=== PATIENT | female | born 1950 | race Caucasian/White ===

== ENCOUNTER → 2016-12-30 | Outpatient (CLI) | payer MEDICARE, OTHER | LOC: FCPNEURO 23:27 | PROVIDERS: ATTEND Psychiatry & Neurology Sleep Medicine | DX: G47.33 Obstructive sleep apnea (adult) (pediatric) (principal) ==

== ENCOUNTER → 2017-12-22 | Outpatient (CLI) | payer OTHER, MEDICARE | LOC: FIMAGING 10:00 | PROVIDERS: ATTEND Orthopaedic Surgery | DX: M75.32 Calcific tendinitis of left shoulder (principal); M75.52 Bursitis of left shoulder; M75.112 Incomplete rotator cuff tear or rupture of left shoulder, not specified as traumatic; M24.112 Other articular cartilage disorders, left shoulder ==

== ENCOUNTER 2018-04-01 13:18 | Day surgery (SDC) | payer OTHER, MEDICARE ==
--- NOTE | 2018-03-31 16:40 | PDGENHP ---
History & Physical Chief Complaint: Left shoulder impingement syndrome History of Present Illness: Jacklyn is a pleasant 67 year old female with left shoulder: 1. Partial thickness RC tearing in the setting of subacromial impingement anatomy. 2. Partial thickness anterior and posterior labral tears. 3. Moderate AC joint osteoarthritis. 4. Mild GH joint osteoarthritis. She is here to discuss surgical procedure. Pertinent Past, Social, Family History: PMH: Cancer, diabetes, HTN, osteopenia, sleep apnea, thyroid problems
[2018-04-01] MEDS ORDERED: ceFAZolin 2 GM/DEXTROSE 100 ML IV ONE (13:37)
[2018-04-01] MEDS ORDERED: LR 1,000 ML IV ONE (13:37)
[2018-04-01] MEDS ORDERED: EPINEPHrine 1 MG/ML INJ ONE (14:27)
[2018-04-01] MEDS ORDERED: BUPIVACAINE 0.5% 30 ML SDV ONE (14:27)
[2018-04-01] MEDS ORDERED: BUPIVACAINE/EPI 0.5% 30 ML SDV ONE (14:34)
--- NOTE | 2018-04-01 15:05 | PDANEPAE ---
ANE History of Present Illness 67 y/o female here for left shoulder surgery. 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 PNA 2017 - Neurologic History Hx Cerebrovascular Accident: No Hx Seizures: No Hx Dementia: No - Endocrine History Hx Diabetes: Yes Endocrine History Comment: TYPE 1. HYPOTHYROIDISM - Renal History Hx Renal Disorders: No - Liver History Hx Hepatic Disorders: No - Neurological & Psychiatric Hx Hx Neurological and Psychiatric Disorders: Yes Neurological / Psychiatric History Comment: "NERVOUS A LOT OF TIMES" - Cancer History Hx Cancer: Yes Cancer History Comment: RIGHT BREAST- RADIATION AND LUMPECTOMY - Congenital Disorder History Hx Congenital Disorders: No - GI History Hx Gastrointestinal Disorders: Yes Gastrointestinal History Comment: HX OF REFLUX- NO MEDICATIONS OF SX'S CURRENTLY - Other Health History Other Health History: WEARS GLASSES FOR DRIVING ONLY - Chronic Pain History Chronic Pain: Yes (LEFT SHOULDER) - Surgical History Prior Surgeries: KNEE SCOPES X2. LASIK EYE SURGERY. TUBAL LIGATION. RIGHT BUNIONECTOMY. RIGHT LUMPECTOMY ANE Review of Systems Review of Systems: - Exercise capacity METS (RN): 4 METS ANE Patient History - Allergies Allergies/Adverse Reactions: No Known Allergies Allergy (Verified 03/27/18 12:47) - Home Medications Home Medications: Amlodipine Besylate 03/27/18 [Last Taken 1 Day Ago ~03/31/18] Aspirin 81mg (*) 03/27/18 [Last Taken 03/27/18] Atorvastatin Calcium 03/27/18 [Last Taken 1 Day Ago ~03/31/18] HCTZ (*) 03/27/18 [Last Taken 1 Day Ago ~03/31/18] Humalog 03/27/18 [Last Taken 04/01/18] Insulin Pump, Patient Own 03/27/18 [Last Taken 04/01/18] Levothyroxine 03/27/18 [Last Taken 1 Day Ago ~03/31/18] Lisinopril 03/27/18 [Last Taken 1 Day Ago ~03/31/18] Metformin HCl 03/27/18 [Last Taken 03/30/18] Tanzeum 03/27/18 [Last Taken 03/22/18] - NPO status NPO Since - Liquids (Date): 04/01/18 NPO Since - Liquids (Time): 12:00 NPO Since - Solids (Date): 04/01/18 NPO Since - Solids (Time): 05:45 - Smoking Hx Smoking Status: Never smoked - Family Anes Hx Family Hx Anesthesia Complications: NONE ANE Labs/Vital Signs - Vital Signs Blood Pressure: 154/84 Heart Rate: 66 Respiratory Rate: 16 O2 Sat (%): 93 Height: 154.94 cm Weight: 66.678 kg ANE Physical Exam - Airway Mallampati Score: Class 3 Mouth exam: normal dental/mouth exam - Pulmonary Pulmonary: clear to auscultation (Chipped front left tooth) - Cardiovascular Cardiovascular: regular rate and rhythym - ASA Status ASA Status: III
[2018-04-01] MEDS ORDERED: PROPOFOL 200 MG/20 ML VIAL ONE (15:26)
[2018-04-01] MEDS ORDERED: MIDAZOLAM 2 MG/2 ML VIAL ONE (15:44)
--- NOTE | 2018-04-01 15:50 | PDHPUP ---
History & Physical Update H&P update statement: This history and physical update is based on an assessment of the patient which was completed after admission or registration (within 24 hours), but prior to the surgery/procedure. H&P update: H&P reviewed & patient examined, no change in patient's condition since H&P completed
[2018-04-01] MEDS ORDERED: ONDANSETRON 4 MG/2 ML VIAL ONE (16:58)
[2018-04-01] MEDS ORDERED: ROCURONIUM 50 MG/5 ML VIAL ONE ×2 (16:59)
[2018-04-01] MEDS ORDERED: DEXAMETHASONE 4 MG/ML VIAL ONE (16:59)
[2018-04-01] MEDS ORDERED: NEOSTIGMINE METHYLSULFATE 5 MG/5 ML SYR ONE (17:01)
[2018-04-01] MEDS ORDERED: GLYCOPYRROLATE 0.2 MG/1 ML VIAL ONE ×2 (17:01)
[2018-04-01] MEDS ORDERED: ESMOLOL HCL 100 MG/10 ML VIAL IV ONE (17:05)
[2018-04-01] MEDS ORDERED: LABETALOL HCL 5 MG/ML 20 ML MDV IVP PRN (17:09)
[2018-04-01] MEDS ORDERED: HYDROmorphONE/DILAUDID 2 MG/ML INJ IVP PRN (17:09)
[2018-04-01] MEDS ORDERED: NALOXONE HCL 0.4 MG/ML INJ IVP PRN (17:09)
[2018-04-01] MEDS ORDERED: ONDANSETRON 4 MG/2 ML VIAL IVP PRN (17:09)
[2018-04-01] MEDS ORDERED: METOCLOPRAMIDE 10 MG/2 ML VIAL IVP PRN (17:09)
[2018-04-01] MEDS ORDERED: MEPERIDINE 25 MG/0.5 ML AMP IVP PRN (17:09)
[2018-04-01] MEDS ORDERED: ACETAMINOPHEN 500 MG TAB PO PRN (17:09)
[2018-04-01] MEDS ORDERED: LR 500 ML IV PRN (17:09)
[2018-04-01] MEDS ORDERED: PROMETHAZINE HCL 25 MG/ML INJ IVP PRN (17:09)
[2018-04-01] MEDS ORDERED: ALBUTEROL 3 ML DEYVIAL IH PRN (17:09)
[2018-04-01] MEDS ORDERED: fentaNYL 100 MCG/2 ML INJ IVP PRN (17:09)
[2018-04-01] MEDS ORDERED: oxyCODONE IR 5 MG TAB PO PRN (17:09)
--- NOTE | 2018-04-01 17:40 | POSTANESTH ---
Post Anesthetic Evaluation Cardiovascular Status: Similar to Pre-Op Cond Respiratory Status: Normal, Stable Level of Consciousness/Mental Status: Can Participate in Eval Pain Control: Adequate, Prn Tx Ordered Nausea/Vomiting Control: Adequate, Prn Tx Ordered
[2018-04-01] MEDS ORDERED: ACETAMINOPHEN 325 MG TAB PO PRN (17:43)
[2018-04-01] MEDS ORDERED: OXYCODONE/APAP 5/325 TAB PO PRN (17:43)
[2018-04-01] MEDS ORDERED: KETOROLAC 15 MG/1 ML SDV IVP ONE (17:43)
--- NOTE | 2018-04-01 17:43 | POSTOPPROG ---
Post Op Note Date of Operation: 04/01/18 Surgeon: Jacki Cagle Anesthesia: LMA, Other (Specify) Pre-op Diagnosis: l shoulder impingement with ac-oa/ labral tear, partial thickness rct Procedure: l shoulder scope with sad/ac resection/debride rc,bicep,labrum Inf/Abcess present in the surg proc area at time of surgery?: No Depth: Deep Incisional (Fascial) EBL: 50-100
[2018-04-01 18:39] VITALS: BP 186/96
--- NOTE | 2018-04-01 18:50 | GOP ---
DATE OF OPERATION: 04/01/2018 SURGEON: Jacki Cagle MD ANESTHESIA: LMA, plus scalene nerve block per surgeon's request. PREOPERATIVE DIAGNOSIS: Left shoulder impingement syndrome with acromioclavicular osteoarthritis, la bral tearing, and partial thickness rotator cuff tear. POSTOPERATIVE DIAGNOSIS: Left shoulder impingement syndrome with acromioclavicular osteoarthritis, l abral tearing, and partial thickness rotator cuff tear. PROCEDURE PERFORMED: Left shoulder arthroscopy with debridement of rotator cuff, labrum, biceps anch or, as well as subacromial decompression, distal clavicle excision with arthroscopic acromioclavicula r resection. FINDINGS: INDICATIONS: This is a 67-year-old female with several month history of left shoulder pain worsening with use and with time. MRI has revealed significant anterior acromial curve, AC osteoarthritis, as well as tearing of the labrum and rotator cuff. She wishes to have surgery in order to resolve the problem. DESCRIPTION OF PROCEDURE: Patient was brought to the operating room after the left side had been amelia ntified as correct side by the patient, nurse, and physician. Once in the operating room, she was gi carolyn a scalene block on the left side and then placed under general anesthesia using LMA. Once asleep , she was placed in a beach chair position with the left upper extremity sterilely prepped and draped in the usual fashion using SANJUANITA/solution. Once prepped and draped, incision was made off the posterolateral corner of the acromion with the cam era introduced without difficulty. Patient was noted to have extensive tearing and fraying of the an terior, posterior, and superior portions of the labrum. She had a section of subscapularis that had torn off and was acting as a pedicle swinging into the glenohumeral joint. She also had fraying of t he rotator cuff. She had irritation, inflammation of the biceps anchor and biceps tendon; therefore using in-to-out technique, an anterior portal was made superolateral to the coracoid process with 6 x 75 mm threaded cannula placed through the anterior portal. 3.5 mm smooth shaver was used to debride and debulk the abundant amount of tearing of the anterior and posterior, superior and inferior porti ons of the labrum, as well as removing the pedicled tear of the subscapularis, and debridement was do ne of the biceps anchor as it attaches near the labrum. Once completed, all instruments were removed from the shoulder joint. Using the same portal sites, r eintroduced in the subacromial space. A third incision was made 2 cm lateral to the acromial process in line with the posterior cortex of the clavicle with the camera switched to the lateral portal, an d alternating using arthroscope, Bovie tip and a shaver was used to remove the abundant amount of bur sa within the subacromial space and the soft tissue from the undersurface of the acromion. She was n oted to have a short curve to the acromion. An acromionizer bur was brought into the posterior sydni l and used to remove that curve, removing approximately 5 mm of bone. Attention was then turned to the distal clavicle, which was noted to have a larger spur inferiorly an d this was also removed using combination of shaver, bur, removing approximately 8 mm of bone. Once completed, a thorough inspection was done of the rotator cuff. No [id number] tears or parti al thickness tears were noted from the subacromial space. An 18-gauge spinal needle was then used to identify and isolate the AC joint, allowing an incision made directly over it and using combination of shaver and bur was used to remove bone from the distal end of the clavicle. Once achieving adequa te room, the camera was able to be placed within the AC joint and a [facility] that an adequate amount of bone had been removed from the distal clavicle. Once finished, all ins truments were removed from the subacromial space with 30 cc of Marcaine infused in the subacromial sp suzie. The 4 portal sites were closed using 3-0 nylon suture in a [id number] type stitch. The wo unds were dressed with Xeroform, 4 x 4, and Tegaderm. Patient was completely undraped in the operati ng room, had a sling placed on the left upper extremity. She was woken up, extubated, transferred on to a stretcher, and sent to recovery room in good condition. /[id number]/MODL
== END 2018-04-01 18:44 | disposition home or self-care (01) ==
LOC: FSGY 13:18
PROVIDERS: ATTEND Orthopaedic Surgery
PROC: 0MN24ZZ Release Left Shoulder Bursa and Ligament, Percutaneous Endoscopic Approach (ICD-10-PCS; principal; 2018-04-01 15:00)
PROC: 0PBB4ZZ Excision of Left Clavicle, Percutaneous Endoscopic Approach (ICD-10-PCS; principal; 2018-04-01 15:00)
PROC: 0RBK4ZZ Excision of Left Shoulder Joint, Percutaneous Endoscopic Approach (ICD-10-PCS; principal; 2018-04-01 15:00)
DX: M75.42 Impingement syndrome of left shoulder (principal); M75.112 Incomplete rotator cuff tear or rupture of left shoulder, not specified as traumatic; M19.012 Primary osteoarthritis, left shoulder; M75.82 Other shoulder lesions, left shoulder; E03.9 Hypothyroidism, unspecified; I10 Essential (primary) hypertension; G47.33 Obstructive sleep apnea (adult) (pediatric)
CPT/HCPCS: J0171; J0690; J1100; J1885; J2250; J2405; J2704; J2710